=== PATIENT | female | born 1995 ===

== ENCOUNTER 2017-10-12 22:19 | Emergency (ER) | payer SELFPAY ==
[2017-10-12] MEDS ORDERED: Ondansetron INJ* 2 MG/ML VIAL IV ONE (22:37)
[2017-10-12] MEDS ORDERED: NS 0.9% 1000 ML* 1,000 ML IV ONE (22:37)
--- NOTE | 2017-10-12 23:42 | ED ---
Substance Abuse/Use - HPI Summary HPI Summary: 22 female presents to ED BIBA after having too many drinks. Patient states she was drinking 4-5 drinks of wine, champagne and beer mixed early this evening and later was having some episodes of "passing out" states she kept falling asleep. However after falling asleep and waking up she states she is feeling better. Did have episodes of vomiting. Still feels nauseous but has not vomited recently. No other complaints. No pain or injuries. Did not fall or hit her head. Has not taken any medications. Denies drug use. Denies suicidal thoughts. - History Of Current Complaint Chief Complaint: EDSubstanceAbuse Stated Complaint: ETOH Time Seen by Provider: 10/12/17 22:30 Hx Obtained From: Patient Onset/Duration of Drug/ETOH Abuse: Hours Ingestion History: Amount Ingested - 4-5 drinks Overdose Characteristics: Oral Timing Of Abuse: Binge Use Severity Initially: Mild Severity Currently: Moderate Character: Stuporous - minimally, is alert and oriented, sleeping upon arrival Aggravating Factor(s): Nothing Alleviating Factor(s): Nothing Associated Signs And Symptoms: Nausea, Vomiting, Intentional Ingestion Related Hx: Drug/Alcohol Last Used @ - "few hours ago" - Allergies/Home Medications Allergies/Adverse Reactions: Allergies Allergy/AdvReac Type Severity Reaction Status Date / Time No Known Allergies Allergy Verified 10/12/17 23:15 PMH/Surg Hx/FS Hx/Imm Hx Endocrine/Hematology History: Denies: Hx Diabetes Cardiovascular History: Denies: Hx Hypertension Respiratory History: Denies: Hx Asthma - Surgical History Surgery Procedure, Year, and Place: n/a - Immunization History Date of Tetanus Vaccine: UTD Date of Influenza Vaccine: 09/2017 Immunizations Up to Date: Yes Infectious Disease History: Unable to Obtain/Confirm Infectious Disease History: Denies: Traveled Outside the [place] in Last 30 Days - Family History Known Family History: Positive: None - Social History Alcohol Use: Weekly Substance Use Type: Reports: Marijuana Smoking Status (MU): Never Smoked Tobacco Review of Systems Constitutional: Negative Cardiovascular: Negative Respiratory: Negative Positive: Vomiting, Nausea All Other Systems Reviewed And Are Negative: Yes Physical Exam Triage Information Reviewed: Yes Vital Signs On Initial Exam: Initial Vitals Temp Pulse Resp BP Pulse Ox 97.9 F 64 18 102/66 100 10/12/17 22:33 10/12/17 22:33 10/12/17 22:33 10/12/17 22:33 12 22:33 Vital Signs Reviewed: Yes Appearance: Positive: Well-Appearing, No Pain Distress, Well-Nourished Skin: Positive: Warm, Skin Color Reflects Adequate Perfusion, Dry. Negative: Cold, Cyanosis @, Pale, Erythema @ Head/Face: Positive: Normal Head/Face Inspection Eyes: Positive: EOMI, TRISTIN, Conjunctiva Clear ENT: Positive: Hearing grossly normal, Pharynx normal, TMs normal Neck: Positive: Supple, Nontender Respiratory/Lung Sounds: Positive: Clear to Auscultation, Breath Sounds Present. Negative: Rales, Rhonchi, Wheezes Cardiovascular: Positive: Normal, RRR, Pulses are Symmetrical in both Upper and Lower Extremities. Negative: Murmur, Rub Abdomen Description: Positive: Nontender, Soft Bowel Sounds: Positive: Present Musculoskeletal: Positive: Normal, Strength/ROM Intact Neurological: Positive: Normal, Sensory/Motor Intact, Alert, Oriented to Person Place, Time, CN Intact II-III, Reflexes Intact, NV Bundle Intact Distally, Normal Gait - [place] Coma Scale Best Eye Response: 4 - Spontaneous Best Motor Response: 6 - Obeys Commands Best Verbal Response: 5 - Oriented Coma Scale Total: 15 Diagnostics - Vital Signs Vital Signs Temp Pulse Resp BP Pulse Ox 10/12/17 22:33 97.9 F 64 18 102/66 100 - Laboratory Lab Statement: Any lab studies that have been ordered have been reviewed, and results considered in the medical decision making process. Re-Evaluation - Re-Evaluation First Eval Re-Evaluation Time: 01:33 Change: Improved - patient felt much better and is ready to go home. no more nausea, alert oriented and awake Course/Dx - Course Course Of Treatment: appears patient drank to much alcohol. did not vomit during stay in ED. Does state she did not eat all day which made symptoms worse.obtianed serum level and was 180. given fluids and zofran. patient was feeling much better. no other concerns at this time. no concern for trauma or need for further work up or psychiatric component. normal vitals. No other complaints. Aware of worsening signs and symptoms. - Diagnoses Differential Diagnosis/HQI/PQRI: Positive: Alcohol Abuse Provider Diagnoses: Intoxication, Alcohol abuse Discharge - Discharge Plan Condition: Stable Disposition: HOME Patient Education Materials: Abuse of Alcohol (ED) Referrals: [facility] - Nate CHANG [Primary Care Provider] - Additional Instructions: drink plenty of fluids. ibuprofen/tylenol for headache. get plenty of rest. avoid alcohol use.
[2017-10-13 02:01] VITALS: BP 101/64
== END 2017-10-13 01:58 | disposition home or self-care (01) ==
LOC: ED 22:19
DX: F10.129 Alcohol abuse with intoxication, unspecified (principal); R11.2 Nausea with vomiting, unspecified
CPT/HCPCS: 36415; 80320; 99282; G0480; J2405

== ENCOUNTER 2018-02-28 20:04 | Emergency (ER) | payer OTHER ==
[2018-02-28 20:58] LABS: ABS Basophils 0.1 10^3/ul (0-0.2); ABS Eosinophils 0.2 10^3/ul (0-0.6); ABS Lymphocytes 1.1 10^3/ul (1.0-4.8); ABS Monocytes 0.7 10^3/ul (0-0.8); ABS Neutrophils 7.7 10^3/ul (1.5-7.7); ABS Nucleated RBC 0 10^3/ul; Hematocrit 41 % (35-47); Hemoglobin 13.9 g/dl (12.0-16.0); Lymphocyte % 11.3 % (25-47); Mean Corpuscular HGB Conc 34 g/dl (31-36); Mean Corpuscular Hemoglobin 29 pg (27-31); Mean Corpuscular Volume 85 fL (80-97); Mean Platelet Volume 7.6 um3 (7.4-10.4); Nucleated Red Blood Cells % 0; Platelet Count 314 10^3/ul (150-450); Red Blood Count 4.81 10^6/ul (4.0-5.4); Red Cell Distribution Width 13 % (10.5-15); White Blood Count 9.7 10^3/ul (3.5-10.8)
--- NOTE | 2018-02-28 20:58 | RAD ---
INDICATION: Chest pressure. COMPARISON: There are no prior studies available for comparison. TECHNIQUE: Dual-energy PA views of the chest were obtained. FINDINGS: Cardiac and mediastinal contours appear to be within normal limits. The lungs are clear. No pleural effusion or pneumothorax is seen. There is a mild dorsal scoliosis convex toward the right side. IMPRESSION: NO EVIDENCE FOR ACUTE DISEASE.
[2018-02-28 21:18] LABS: EGFR Non-African American 86.4 (>60)
--- NOTE | 2018-02-28 23:05 | ED ---
HPI Chest Pain - HPI Summary HPI Summary: C/O NEW ONSET MILD "CHEST PRESSURE", MILD SOB STARTING AT 7PM. CHEST PRESSURE HAS IMPROVED TO 2/10 CURRENTLY, SOB COMPLETELY RESOLVED. NO RADIATION, NO DIAPHORESIS. DENIES TRAUMA, LIFTING, NEW EXERCISE, N/V, FEVER, COUGH, SORE THROAT, ABDO PAIN, CHNAGE IN URINE OR BM. DENIES HX OF BLOOD CLOTS, RECENT TRAUMA OR SURGERY. ON OCP'S. NO CARDIAC HX, NON SMOKER, NEG FAM CARDIAC HX. MED HX = NONE. DENIES STRESS. - History of Current Complaint Chief Complaint: EDChestPainROMI Time Seen by Provider: 02/28/18 21:52 Hx Obtained From: Patient Onset/Duration: Started Hours Ago Timing: Constant Initial Severity: Mild Current Severity: Mild Pain Intensity: 5 Pain Scale Used: 0-10 Numeric Chest Pain Location: Mid Sternal Chest Pain Radiates: No Character: Pressure/Squeezing Aggravating Factor(s): Nothing Alleviating Factor(s): Rest Associated Signs and Symptoms: Positive: Shortness of Breath - MILD INITIALLY, NOW RESOLVED - Risk Factors Pulmonary Embolism Risk Factors: Oral Contraceptives TAD Risk Factors: Negative - Allergy/Home Medications Allergies/Adverse Reactions: Allergies Allergy/AdvReac Type Severity Reaction Status Date / Time No Known Allergies Allergy Verified 02/28/18 20:20 Home Medications: Home Medications FLUoxetine CAP* [PROzac CAP*] 10 mg PO DAILY 02/28/18 [History Confirmed ] Multivitamins/Minerals TAB* [Theragran/minerals TAB*] 1 tab PO DAILY 02/28/18 [ History Confirmed 02/28/18] Norethindrone (NF) [[place] (NF)] 0.35 mg PO DAILY 02/28/18 [History Confirmed 02/28/18] PMH/Surg Hx/FS Hx/Imm Hx Endocrine/Hematology History: Denies: Hx Diabetes Cardiovascular History: Denies: Hx Hypertension Respiratory History: Denies: Hx Asthma - Surgical History Surgery Procedure, Year, and Place: n/a - Immunization History Date of Tetanus Vaccine: UTD Date of Influenza Vaccine: 09/2017 Infectious Disease History: No Infectious Disease History: Denies: Traveled Outside the [place] in Last 30 Days - Family History Known Family History: Positive: None - Social History Alcohol Use: Weekly Substance Use Type: Reports: Marijuana Smoking Status (MU): Never Smoked Tobacco Review of Systems Constitutional: Negative Eyes: Negative ENT: Negative Positive: Chest Pain Positive: Shortness Of Breath Gastrointestinal: Negative Genitourinary: Negative Musculoskeletal: Negative Skin: Negative Neurological: Negative Psychological: Normal All Other Systems Reviewed And Are Negative: Yes Physical Exam - Summary Physical Exam Summary: CHEST NON TTP. DENIES Triage Information Reviewed: Yes Vital Signs On Initial Exam: Initial Vitals Temp Pulse Resp BP Pulse Ox 97.7 F 58 16 109/68 100 02/28/18 20:18 02/28/18 20:18 02/28/18 20:18 02/28/18 20:18 02/28/18 20:18 Vital Signs Reviewed: Yes Appearance: Positive: Well-Appearing Skin: Positive: Warm Head/Face: Positive: Normal Head/Face Inspection Eyes: Positive: Normal ENT: Positive: Normal ENT inspection Neck: Positive: Supple Respiratory/Lung Sounds: Positive: Clear to Auscultation Cardiovascular: Positive: RRR, Bradycardia Abdomen Description: Positive: Nontender Musculoskeletal: Positive: Normal Neurological: Positive: Normal Psychiatric: Positive: Normal AVPU Assessment: Alert - [place] Coma Scale Best Eye Response: 4 - Spontaneous Best Motor Response: 6 - Obeys Commands Best Verbal Response: 5 - Oriented Coma Scale Total: 15 Diagnostics - Vital Signs Vital Signs Temp Pulse Resp BP Pulse Ox 02/28/18 22:50 55 14 112/66 100 02/28/18 22:00 53 14 100 02/28/18 21:50 52 17 115/66 100 02/28/18 21:46 58 100 02/28/18 20:18 97.7 F 58 16 109/68 100 - Laboratory Lab Results: Lab Results 02/28/18 02/28/18 02/28/18 Range/Units 20:47 20:47 20:47 WBC 9.7 (3.5-10.8) 10^3/ul RBC 4.81 (4.0-5.4) 10^6/ul Hgb 13.9 (12.0-16.0) g/dl Hct 41 (35-47) % MCV 85 (80-97) fL MCH 29 (27-31) pg MCHC 34 (31-36) g/dl RDW 13 (10.5-15) % Plt Count 314 (150-450) 10^3/ul MPV 7.6 (7.4-10.4) um3 Neut % (Auto) 79.2 (38-83) % Lymph % (Auto) 11.3 L (25-47) % [place] % (Auto) 7.0 (0-7) % Eos % (Auto) 2.0 (0-6) % Baso % (Auto) 0.5 (0-2) % Absolute Neuts (auto) 7.7 (1.5-7.7) 10^3/ul Absolute Lymphs (auto) 1.1 (1.0-4.8) 10^3/ul Absolute Monos (auto) 0.7 (0-0.8) 10^3/ul Absolute Eos (auto) 0.2 (0-0.6) 10^3/ul Absolute Basos (auto) 0.1 (0-0.2) 10^3/ul Absolute Nucleated RBC 0 10^3/ul Nucleated RBC % 0 Sodium 136 L (139-145) mmol/L Potassium 4.0 (3.5-5.0) mmol/L Chloride 103 (101-111) mmol/L Carbon Dioxide 27 (22-32) mmol/L Anion Gap 6 (2-11) mmol/L BUN 18 (6-24) mg/dL Creatinine 0.84 (0.51-0.95) mg/dL Est GFR ( Amer) 111.2 (>60) Est GFR (Non-Af Amer) 86.4 (>60) BUN/Creatinine Ratio 21.4 H (8-20) Glucose 100 (70-100) mg/dL Lactic Acid 0.4 L (0.5-2.0) mmol/L Calcium 9.1 (8.6-10.3) mg/dL Total Bilirubin 0.40 (0.2-1.0) mg/dL AST 16 (13-39) U/L ALT 9 (7-52) U/L Alkaline Phosphatase 59 (34-104) U/L Troponin I 0.00 (<0.04) ng/mL Total Protein 7.4 (6.4-8.9) g/dL Albumin 4.4 (3.2-5.2) g/dL Globulin 3.0 (2-4) g/dL Albumin/Globulin Ratio 1.5 (1-3) Result Diagrams: 02/28/18 20:47 02/28/18 20:47 Lab Statement: Any lab studies that have been ordered have been reviewed, and results considered in the medical decision making process. - Radiology 1 Xray Interpretation: No Acute Changes - EKG 1 Cardiac Rate: Bradycardia EKG Rhythm: Sinus Bradycardia ST Segment: Normal, Non-Specific Ectopy: None Chest Pain Course/Dx - Course Course Of Treatment: LABS, EKG AND IMAGING UNREMARKABLE. NO CARDIAC HX. - Chest Pain Differential Diagnosis/HQI/PQRI: Acute [place], Angina, Chest Wall, Lower Respiratory Infection, Pulmonary Embolism - Diagnoses Provider Diagnoses: Atypical chest pain Discharge - Sign-Out/Discharge Documenting (check all that apply): Discharge - Discharge Plan Condition: Stable Disposition: HOME [facility] - Additional Instructions: FOLLOW UP WITH PRIMARY CARE. RETURN TO ED FOR ANY NEW OR WORSENING SYMPTOMS. - Billing Disposition and Condition Condition: STABLE Disposition: HOME
[2018-03-01 00:26] VITALS: BP 114/63
== END 2018-03-01 00:32 | disposition home or self-care (01) ==
LOC: ED 20:04
DX: R07.89 Other chest pain (principal); R00.1 Bradycardia, unspecified; R06.02 Shortness of breath; Z79.3 Long term (current) use of hormonal contraceptives
CPT/HCPCS: 36415; 71045; 80053; 83605; 84484; 85025; 93005; 99283